=== PATIENT | male | born 1965 | race Caucasian/White ===

== ENCOUNTER 2021-05-25 04:05 | Emergency (ER) | payer OTHER ==
[2021-05-25 04:12] VITALS: BP 169/94; PULSE 68; RESP 18; TEMP 98
--- NOTE | 2021-05-25 05:01 | ED ---
General Adult HPI - General Chief complaint: Recheck/Abnormal Lab/Rx Stated complaint: Covid Test Time Seen by Provider: 05/25/21 04:06 Source: patient Mode of arrival: ambulatory - History of Present Illness Initial comments: This patient is a 55-year-old man who presents to have covid 19 test for purpose across in order. Patient denies medical complaint. He declines medical screening exam - Related Data Allergies Allergy/AdvReac Type Severity Reaction Status Date / Time No Known Allergies Allergy Verified 05/25/21 04:20 Review of Systems ROS Statement: Those systems with pertinent positive or pertinent negative responses have been documented in the HPI. ROS Other: All systems not noted in ROS Statement are negative. Past Medical History Past Medical History: No Reported History History of Any Multi-Drug Resistant Organisms: None Reported Past Surgical History: No Surgical Hx Reported Past Psychological History: No Psychological Hx Reported Smoking Status: Never smoker Past Alcohol Use History: None Reported Past Drug Use History: None Reported Course Vital Signs 05/25/21 04:10 Temperature 98 F Pulse Rate 68 Respiratory 18 Rate Blood Pressure 169/94 O2 Sat by Pulse 97 Oximetry Medical Decision Making - Lab Data Lab Results 05/25/21 Range/Units 04:18 Coronavirus (PCR) Not Detected (Not Detectd) Disposition Clinical Impression: Encounter for immunological test Disposition: HOME SELF-CARE Condition: Good Is patient prescribed a controlled substance at d/c from ED?: No Referrals: None,Stated [Primary Care Provider] - 1-2 days
== END 2021-05-25 05:09 | disposition home or self-care (01) ==
LOC: EC 04:05
DX: Z20.822 Contact with and (suspected) exposure to COVID-19 (principal)
CPT/HCPCS: 87635; 99283